=== PATIENT | female | born 1980 | race Caucasian/White ===

== ENCOUNTER 2017-03-07 08:07 | Inpatient (IN) | payer OTHER ==
[~2017-03-07] VITALS: Ht 152.4 cm; Wt 58.9 kg
[~2017-03-07 08:07] MED LIST: PREN1TAB49
[2017-03-07 11:40] VITALS: BP 106/55; RESP 18
[2017-03-07] MEDS ORDERED: HYDROCODONE/APAP (5/325) TAB PO PRN (12:30)
[2017-03-07] MEDS ORDERED: ZOLPIDEM 5 MG TAB PO PRN (12:30)
[2017-03-07] MEDS ORDERED: NACL 0.9% 3 ML SYG IV SCH (12:30)
[2017-03-07] MEDS ORDERED: ACETAMINOPHEN 325 MG TAB PO PRN (12:30)
[2017-03-07] MEDS ORDERED: morphine 2 MG INJ IV PRN (12:30)
[2017-03-07] MEDS ORDERED: ONDANSETRON 4 MG INJ IV PRN (12:30)
[2017-03-07] MEDS ORDERED: DOCUSATE SODIUM 100 MG CAP PO PRN (12:30)
[2017-03-07] MEDS ORDERED: VANCOMYCIN IV PER PHARMACY XX SCH (12:30)
--- NOTE | 2017-03-07 13:15 | HP ---
DATE OF ADMISSION: 03/07/2017 CHIEF COMPLAINT: Nausea and diarrhea as well as fevers. HISTORY OF PRESENT ILLNESS: The patient is a 37-year-old female with no significant medical history . The patient started developing an abscess on her upper back as well as fevers last week. She was given antibiotics with Keflex and Bactrim. The fevers persisted and she went to the ER at [facility]. The patient had I and D several days ago at [facility]. Since then, she has continued to take her antibiotics and started reporting nausea without any vomiting, but did also have diarrhea for 1 day. She also had a T-max of 102.3 and is complaining of a headache. The patient states that she s topped taking her antibiotics last night and since then has been feeling better. Her nausea is now resolved as has her diarrhea. She just feels confused at the time. The patient has no other compla ints. PAST MEDICAL HISTORY: Negative. PAST SURGICAL HISTORY: Tubal ligation. HOME MEDICATIONS: Keflex and Bactrim the past week. ALLERGIES: NO KNOWN DRUG ALLERGIES. FAMILY HISTORY: Noncontributory. SOCIAL HISTORY: Denies any alcohol, tobacco or drugs. REVIEW OF SYSTEMS: A 12-point review of systems negative except that stated in the HPI. PHYSICAL EXAMINATION: VITAL SIGNS: Temperature is 98.9, pulse 97, respirations 18, blood pressure 106/55, saturation 98% on room air. GENERAL: No acute distress. HEENT: Normocephalic, atraumatic. LUNGS: Clear to auscultation. CARDIOVASCULAR: Regular rate and rhythm. ABDOMEN: Nondistended, nontender, soft. EXTREMITIES: No clubbing, cyanosis, or edema. SKIN. Drained abscess is noted on the upper back. LABORATORY DATA: White count is 2.0, hemoglobin is 12.6, platelets are 120. Chemistry: Sodium 133 , 2.4, BUN is 5, creatinine is 0.64. Urine is . UA leukocyte is small, nitrit e is negative, WBC is 6, bacteria is none. DIAGNOSTICS: Chest x-ray shows no evidence of acute cardiopulmonary disease. ASSESSMENT AND PLAN: 1. Sepsis secondary to upper back abscess, now status post I and D several days ago. The patient w as having fevers earlier, but is now afebrile. The patient's white count is within normal limits. We will treat with vancomycin IV for today and monitor her temperature overnight. 2. Nausea with diarrhea, now resolved. It is likely secondary to Bactrim. Will hold her p.o. anti biotics. 3. Hyponatremia. We will monitor. 4. Prophylaxis, ambulation. Dictated By: KATELIN NICOLAS MD BS/NTS Conf#: [id number] DID#: [id number]
[2017-03-07] MEDS ORDERED: VANCOMYCIN 1.25 GM in SOD CHLORIDE 0.9% 250 ML IVPB SCH (14:30)
[2017-03-07 15:29] LABS: CREATININE 0.55 mg/dl (0.44-1.00)
[2017-03-07] MEDS ORDERED: DIPHENHYDRAMINE 50 MG INJ IV ONE (17:30)
[2017-03-07] MEDS ORDERED: CEPH500C PO (19:54)
[2017-03-07] MEDS ORDERED: SULF1TAB31 PO (19:55)
[2017-03-07 20:02] VITALS: BP 99/55; RESP 18
[2017-03-07] MEDS: ACETAMINOPHEN 325 MG TAB PO SCH (21:00)
[2017-03-07] MEDS: DIPHENHYDRAMINE 25 MG CAP PO SCH (21:57)
[2017-03-07] MEDS: VANCOMYCIN 750 MG in SOD CHLORIDE 0.9% 150 ML IVPB SCH (22:58)
[2017-03-08 05:50] LABS: ADD SCAN DIFF NO
[2017-03-08] MEDS: ACETAMINOPHEN 325 MG TAB PO SCH ×3 (05:50→21:48)
[2017-03-08] MEDS: DIPHENHYDRAMINE 25 MG CAP PO SCH ×3 (05:50→21:47)
[2017-03-08 06:06] LABS: ALBUMIN 3.6 g/dl (3.3-4.9); ALBUMIN/GLOBULIN RATIO 1.2; BILIRUBIN,INDIRECT 0.3 mg/dl (0-1.1); BILIRUBIN,TOTAL 0.3 mg/dl (0.2-1.3); CALCIUM 8.6 mg/dl (8.4-10.2); CHOL/HDL RATIO 6.3 RATIO; CREATININE 0.56 mg/dl (0.44-1.00); MAGNESIUM 1.7 mg/dl (1.7-2.5); PHOSPHORUS 4.9 mg/dl (2.5-4.9); POTASSIUM 3.8 mmol/L (3.5-5.1); TOTAL PROTEIN 6.6 g/dl (6.1-8.1)
[2017-03-08 06:16] LABS: T3 UPTAKE 28.4 % (23.5-40.5)
[2017-03-08] MEDS: VANCOMYCIN 750 MG in SOD CHLORIDE 0.9% 150 ML IVPB SCH ×2 (06:47→16:04)
[2017-03-08 07:05] VITALS: BP 90/51; RESP 16
[2017-03-08 07:16] LABS: ABNORMAL IP MESSAGE 1; HEMATOCRIT 34.5 % (37.0-47.0); HEMOGLOBIN 11.2 g/dl (12.0-16.0); MEAN CORPUSCULAR HEMOGLOBIN 27.7 pg (29.0-33.0); MEAN CORPUSCULAR HGB CONC 32.5 g/dl (32.0-37.0); MEAN CORPUSCULAR VOLUME 85.2 fl (82.0-101.0); MEAN PLATELET VOLUME 11.8 fl (7.4-10.4); PLATELET COUNT 118 10^3/UL (140-415); RED BLOOD COUNT 4.05 10^6/ul (4.20-5.40); RED CELL DISTRIBUTION WIDTH 14.3 % (11.5-14.5); WHITE BLOOD COUNT 2.3 10^3/ul (4.8-10.8)
[2017-03-08 11:50] LABS: EOSINOPHILS # 0.3 10^3/ul (0.0-0.5); LYMPHOCYTES # 0.9 10^3/ul (0.8-2.9); MONOCYTE # 0.2 10^3/ul (0.3-0.9); NEUTROPHIL # 0.6 10^3/ul (1.6-7.5)
[2017-03-08 11:51] LABS: PLATELET ESTIMATE PLT APPEAR DECREASED
--- NOTE | 2017-03-08 19:40 | PN ---
Date/Time of Note Date/Time of Note DATE: 03/08/17 TIME: 19:38 Assessment/Plan VTE Prophylaxis VTE Prophylaxis Intervention: ambulation Lines/Catheters IV [facility]ter [facility] (from [facility] Urinary Cath still in place: No Assessment/Plan Chief Complaint/Hosp Course 1. Sepsis secondary to upper back abscess, now status post I and D several days ago -Fevers noted O/N -Monitor today -cont Vanco 2. Nausea with diarrhea, now resolved-likely secondary to Bactrim - Will hold her p.o. antibiotics 3. Hyponatremia-resolved 4. Pancytopenia -monitor -out-pt Hem Prophylaxis- ambulation. Problems: Subjective 24 Hr Interval Summary Neurologic: dizziness Exam/Review of Systems Vital Signs Vitals Vital Signs Date Time Temp Pulse Resp B/P Pulse Ox O2 Delivery O2 Flow Rate FiO2 03/08/17 07:05 98.3 81 16 90/51 98 Intake and Output 03/07/17 03/07/17 03/08/17 15:00 23:00 07:00 Intake Total 712 ml 550 ml Balance 712 ml 550 ml Exam Constitutional: alert, oriented Respiratory: clear to auscultation Cardiovascular: regular rate and rhythm Gastrointestinal: soft, No distended Musculoskeletal: nl extremities to inspection Results Result Diagram: 03/08/17 0516 03/08/17 0516 Results 24 hrs Laboratory Tests Test 03/08/17 05:16 03/08/17 14:29 White Blood Count 2.3 #L Red Blood Count 4.05 L Hemoglobin 11.2 L Hematocrit 34.5 L Mean Corpuscular Volume 85.2 Mean Corpuscular Hemoglobin 27.7 L Mean Corpuscular Hemoglobin Concent 32.5 Red Cell Distribution Width 14.3 Platelet Count 118 L Mean Platelet Volume 11.8 H Neutrophils % 24.0 L Band Neutrophils % 10.0 H Lymphocytes % 38.0 Reactive Lymphocytes % 6.0 Monocytes % 8.0 Eosinophils % 12.0 H Metamyelocytes % 2.0 H Neutrophils # 0.6 L Lymphocytes # 0.9 Monocytes # 0.2 L Eosinophils # 0.3 Metamyelocytes # 0.0 Platelet Estimate PLT APPEAR DECREASED Sodium Level 136 Potassium Level 3.8 Chloride Level 105 Carbon Dioxide Level 27 Anion Gap 8 Blood Urea Nitrogen 6 L Creatinine 0.56 Glucose Level 90 Hemoglobin A1c 5.5 Calcium Level 8.6 Phosphorus Level 4.9 Magnesium Level 1.7 Total Bilirubin 0.3 Direct Bilirubin 0.00 Indirect Bilirubin 0.3 Aspartate Amino Transf (AST/SGOT) 24 Alanine Aminotransferase (ALT/SGPT) 28 Alkaline Phosphatase 46 Total Protein 6.6 Albumin 3.6 Globulin 3.00 Albumin/Globulin Ratio 1.20 Triglycerides Level 174 H Cholesterol Level 114 LDL Cholesterol, Calculated 61 HDL Cholesterol 18 L Cholesterol/HDL Ratio 6.3 Free Thyroxine Index 1.93 Thyroxine (T4) 6.8 Triiodothyronine (T3) Uptake 28.4 Vancomycin Level Trough 8.3 L Medications Medications Current Medications Ondansetron HCl (Zofran Inj) 4 mg Q6H PRN IV NAUSEA AND/OR VOMITING; Start at 12:30 Acetaminophen (Tylenol Tab) 650 mg Q6H PRN PO PAIN LEVEL 1-3 OR FEVER Last administered on 03/07/17 13:15; Admin Dose 650 MG; Start 03/07/17 at 12:30 Acetaminophen/ Hydrocodone Bitart ([place] (5/325)) 1 tab Q6H PRN PO MODERATE PAIN LEVEL 4-6; Start 03/07/17 at 12:30 Morphine Sulfate (morphine) 2 mg Q4H PRN IV SEVERE PAIN LEVEL 7-10; Start 03/07 at 12:30 Docusate Sodium (Colace) 100 mg Q12H PRN PO CONSTIPATION; Start 03/07/17 at 12: 30 Zolpidem Tartrate (Ambien) 5 mg QHS PRN PO SLEEP; Start 03/07/17 at 12:30 Diphenhydramine HCl (Benadryl) 25 mg Q8H PO Last administered on 03/08/17 15: 01; Admin Dose 25 MG; Start 03/07/17 at 22:00 Acetaminophen 650 mg 650 mg Q8H PO Last administered on 03/08/17 15:01; Admin Dose 650 MG; Start 03/07/17 at 22:00 Vancomycin HCl/ Sodium Chloride (Vancocin/NS) 250 ml @ 83.333 mls/ hr Q8H IVPB ; Start 03/08/17 at 23:00 KATELIN NICOLAS Mar 08, 2017 19:40
[2017-03-08 21:05] VITALS: BP 95/53; RESP 20
[2017-03-08] MEDS: VANCOMYCIN 1.25 GM in SOD CHLORIDE 0.9% 250 ML IVPB SCH (22:40)
[2017-03-09 05:10] LABS: ADD SCAN DIFF NO
[2017-03-09 05:25] LABS: ABNORMAL IP MESSAGE 1; HEMATOCRIT 31.6 % (37.0-47.0); HEMOGLOBIN 10.2 g/dl (12.0-16.0); MEAN CORPUSCULAR HEMOGLOBIN 27.9 pg (29.0-33.0); MEAN CORPUSCULAR HGB CONC 32.3 g/dl (32.0-37.0); MEAN CORPUSCULAR VOLUME 86.6 fl (82.0-101.0); MEAN PLATELET VOLUME 11.6 fl (7.4-10.4); PLATELET COUNT 113 10^3/UL (140-415); RED BLOOD COUNT 3.65 10^6/ul (4.20-5.40); RED CELL DISTRIBUTION WIDTH 14.3 % (11.5-14.5); WHITE BLOOD COUNT 2.9 10^3/ul (4.8-10.8)
[2017-03-09] MEDS: DIPHENHYDRAMINE 25 MG CAP PO SCH (05:30)
[2017-03-09] MEDS: ACETAMINOPHEN 325 MG TAB PO SCH (05:31)
[2017-03-09 05:33] LABS: POTASSIUM 3.5 mmol/L (3.5-5.1)
[2017-03-09 05:36] LABS: CALCIUM 8.4 mg/dl (8.4-10.2); CREATININE 0.56 mg/dl (0.44-1.00)
[2017-03-09 05:37] LABS: MAGNESIUM 1.8 mg/dl (1.7-2.5)
[2017-03-09] MEDS: VANCOMYCIN 1.25 GM in SOD CHLORIDE 0.9% 250 ML IVPB SCH (06:30)
[2017-03-09 08:16] VITALS: BP 89/50; RESP 16
[2017-03-09 10:19] VITALS: BP 103/54; PULSE 85
--- NOTE | 2017-03-09 10:25 | PDOCDIS ---
Discharge Instructions CONDITION Patient Condition: Good HOME CARE INSTRUCTIONS: Diet Instructions: Regular ACTIVITY: Activity Restrictions: No Restrictions FOLLOW UP/APPOINTMENTS Appointments F/U WITH YOUR PCP IN 1-2 WEEKS KATELIN NICOLAS Mar 09, 2017 10:25
[2017-03-09] MEDS ORDERED: MECL12.574 PO (11:13)
[2017-03-09 13:36] LABS: EOSINOPHILS # 0.4 10^3/ul (0.0-0.5); LYMPHOCYTES # 1.7 10^3/ul (0.8-2.9); MONOCYTE # 0.2 10^3/ul (0.3-0.9); NEUTROPHIL # 0.5 10^3/ul (1.6-7.5)
--- NOTE | 2017-03-10 03:16 | DS ---
DATE OF ADMISSION: 03/07/2017 DATE OF DISCHARGE: 03/09/2017 DISCHARGE DIAGNOSES: 1. Sepsis secondary to cellulitis from abscess on the back, now resolved. 2. Nausea with diarrhea, resolved. This was likely secondary to Bactrim. 3. Dizziness, likely secondary to antibiotic use, discharged with meclizine. HOSPITAL COURSE: The patient is a 37-year-old female with no significant medical history. The juana ent developed an abscess in her upper back and had an I and D at [facility]. She also was given ant ibiotics with Keflex and Bactrim. She developed nausea and diarrhea several days after her I and D. She stopped her antibiotics and her nausea and vomiting resolved, but she did have fever and she p resented to [facility] and was transferred to [facility], for insurance reasons. The patie nt did have a fever the first night of her hospitalization, but that resolved. She had no leukocyto sis and actually has pancytopenia that is mild. The patient was told to follow up with a hematologi st as an outpatient for workup of the pancytopenia. There is no urgent need for workup at this time , as the pancytopenia is relatively mild. The patient was afebrile the day prior to her discharge a nd on the day of discharge, her other vitals remained stable. She had no acute complaints except fo r some dizziness, and this was felt to be secondary to her antibiotic usage versus benign positional vertigo. Dizziness did begin when she started her p.o. antibiotics. Patient did receive vancomyci n IV during this hospitalization, and she was felt to no longer need any further antibiotics upon di scharge. On day of discharge, the patient's vitals, labs, physical exam were stable. She had no ac viejas complaints, except for the dizziness. Her physical exam was stable. CONDITION ON DISCHARGE: Stable. DISPOSITION: To home. MEDICATIONS: Meclizine 12.5 mg p.o. q.8 hours p.r.n. for dizziness. The patient has stopped taking her home with Keflex and Bactrim. FOLLOWUP: The patient is to follow up with her PCP in 1 to 2 weeks and was told to follow up with a broadcast field supervisor for workup of her pancytopenia. Greater than 30 minutes was spent coordinating discharge of patient. Dictated By: KATELIN NICOLAS MD BS/NTS Conf#: [id number] DID#: [id number] CC: JOSE SABA MD;*End*
== END 2017-03-09 11:32 | disposition home or self-care (01) | DRG 872 ==
LOC: PP2 11:23
PROVIDERS: ADMIT Family Medicine; ATTEND Family Medicine
DX: A41.9 Sepsis, unspecified organism (principal); D61.818 Other pancytopenia; L02.212 Cutaneous abscess of back [any part, except buttock and flank]; E87.1 Hypo-osmolality and hyponatremia; L03.312 Cellulitis of back [any part except buttock and flank]; R42 Dizziness and giddiness
CPT/HCPCS: 80048; 80053; 80061; 80202; 82565; 83036; 83735; 84100; 84436; 84479; 84520; 85025; 87081; J1200; J3370; J7050

== ENCOUNTER 2017-03-17 14:54 | Outpatient (CLI) | payer OTHER ==
[~2017-03-17] VITALS: Ht 142.2 cm; Wt 58.9 kg
[~2017-03-17 14:54] MED LIST changes: +MECL12.574 PO
[2017-03-17 15:03] VITALS: BP 115/58; PULSE 83; RESP 16; Ht 142.2 cm; Wt 58.9 kg
--- NOTE | 2017-03-17 15:20 | PN ---
Date/Time of Note Date/Time of Note DATE: 03/17/17 TIME: 15:16 Outpatient Progress Note Chief Complaint Cellulitis/sebaceous cyst/dizziness HPI Cellulitis/patient has cellulitis on her back, improved, no fever chill, no bleeding or discharge, minimal redness, Sebaceous cyst/patient has sebaceous cyst in the back, patient had IND, patient was started on antibiotic, Dizziness/patient had dizziness off and on, no fever chill, no chest pain, no palpitation, Review of Systems Const: No Fever, no chills, no Wt. loss, no Fatigue, normal appetite, no diaphoresis. Eyes: No pain, no discharge, no redness, no visual change, no foreign body. ENT: No pain, no bleeding, no congestion, no sore throat, no dysphagia, no discharge or rhinitis. Lymph: No adenopathy, no tender nodes, no lymphedema. Resp: No SOB, no cough, no sputum, no wheezing, no chest pain. CV: No chest pain, no palpitaions, no KIM, no PND, no edema. GI: Normal appetite, no pain, no nausea, no vomiting, no diarrhea, no blood, no constipation. : No frequency, no urgency, no dysuria, no hematuria, no flank pain, no discharge, no bleeding. Musc: no back pain, no neck pain, no knee pain, no restricted ROM. Skin: No rash, no skin lesions, patient had minimal cellulitis in the back, and had a sebaceous cyst, no erythema, no laceration, no bruising, no pruritus. Neuro: No DEAN, no dizziness, no syncope, no seizure, no focal-weakness. Endo: No polyuria, no polydypsia, no dry-skin, no temp-intolerance. Psych: No hallucinations, no depression, no anxiety, no suicidal ideation. Ext: No edema, no pain, no ulcer, no weakness. Physical Exam General Appearance: A [37] year-old female] who appears well-developed, well- nourished, in no acute distress. HEENT: Head normocephalic, atraumatic. Pupils equal, round, reactive to light and accommodate. Sclerae are no jaundice. Nasal turbinates pink without erythema or nasal discharge. Mucous membranes pink and moist without lesions. Oropharynx clear without any exudate or discharge. NECK: Supple. Trachea midline, No thyromegaly, No cervical lymphadenopathy, No mass, No carotid bruits, No JVD, Carotid pulses 2+ bilaterally. PULMONARY: Clear to auscultaion bilaterally, No retractions, Chest expansion symmetric bilaterally, no rales, no ronchi, no dulness on percussion. CARDIAC: Normal SI and S2, Regular rate and rythm, no murmur, gallop, or rub. GASTROINTESTINAL: Abdomen is soft, non-tender, Non Rigid, No distention, Positive bowel sounds x4 quadrants, Liver normal. SKIN: Warm, dry, no rash, no bruise, no echmosis. Cellulitis improving, minimal redness, no drainage, patient also has sebaceous cyst, minimal size, EXTREMITIES: Bilateral lower extremities normal, no edema, no phlabitus, pulse palpable, no contracture. MUSCULOSKELETAL: Spine Normal, Non-tender, Normal range of motion, No swelling, no deformity, no clubbing, or cyanosis, the patient has no edema to bilateral lower extremities, dorsalis pedis pulses palpable bilaterally. NEUROLOGIC: The patient is awake, alert, oriented, responding to yes/no questions appropriately, moving all extremities, cranial nerve intact, normal strenght, normal power, normal coordination, normal gait. Allergies Coded Allergies: No Known Drug Allergy (Verified Allergy, Unknown, 11/19/15) No Known Allergy (Verified , 12/26/09) PMH No smoking or drinking, Incision and drainage of the cyst, Social Hx No smoking or drinking, Family Hx Noncontributory Assessment/Plan Impression Cellulitis/sebaceous cyst/dizziness Plan Patient has small sebaceous cyst, she had incision and drainage, patient doing better, no fever chill, Patient education done, Patient encouraged to follow with the primary care physician, Patient has Antivert for dizziness, will monitor closely, Medications Home Meds Active Scripts Meclizine Hcl* (Antivert*) 12.5 Mg Tab, 12.5 MG PO Q8H Y for DIZZINESS, #30 TAB Prov:KATELIN NICOLAS 03/09/17 Reported Medications Vits W-Ca,Fe,Fa(<1MG) () 1 Tab Tablet, 1 DAILY 06/05/11 LISSETH MANUEL MD March 17, 2017 15:20
== END 2017-03-17 17:00 | disposition home or self-care (01) ==
LOC: DCC 14:54
PROVIDERS: ATTEND Internal Medicine
DX: L03.319 Cellulitis of trunk, unspecified (principal); L72.3 Sebaceous cyst; R42 Dizziness and giddiness

== ENCOUNTER 2017-03-26 10:59 | Outpatient (CLI) | payer OTHER ==
[~2017-03-26] VITALS: Ht 142.2 cm; Wt 58.2 kg
[2017-03-26 11:16] VITALS: BP 125/58; PULSE 89; RESP 16; Ht 142.2 cm; Wt 58.2 kg
--- NOTE | 2017-03-26 11:36 | PN ---
Date/Time of Note Date/Time of Note DATE: 03/26/17 TIME: 11:33 Outpatient Progress Note Chief Complaint Dizziness/cellulitis/cyst HPI Dizziness/patient has minimal dizziness, patient has not taken medication, no headache or ear pain, no sore throat, no chest pain or palpitation, Cellulitis patient had cellulitis in the back, patient finished antibiotic, no more cellulitis, Cyst patient has sebaceous cyst in the back, size reduced, no bleeding or discharge, Review of Systems Const: No Fever, no chills, no Wt. loss, no Fatigue, normal appetite, no diaphoresis. Eyes: No pain, no discharge, no redness, no visual change, no foreign body. ENT: No pain, no bleeding, no congestion, no sore throat, no dysphagia, no discharge or rhinitis. Lymph: No adenopathy, no tender nodes, no lymphedema. Resp: No SOB, no cough, no sputum, no wheezing, no chest pain. CV: No chest pain, no palpitaions, no KIM, no PND, no edema. GI: Normal appetite, no pain, no nausea, no vomiting, no diarrhea, no blood, no constipation. : No frequency, no urgency, no dysuria, no hematuria, no flank pain, no discharge, no bleeding. Musc: no back pain, no neck pain, no knee pain, no restricted ROM. Skin: No rash, no skin lesions, no erythema, no laceration, no bruising, no pruritus. Neuro: No DEAN, no dizziness, no syncope, no seizure, no focal-weakness. Endo: No polyuria, no polydypsia, no dry-skin, no temp-intolerance. Psych: No hallucinations, no depression, no anxiety, no suicidal ideation. Ext: No edema, no pain, no ulcer, no weakness. Physical Exam Vital Signs Date Time Temp Pulse Resp B/P Pulse Ox O2 Delivery O2 Flow Rate FiO2 03/26/17 11:16 98.2 89 16 125/58 98 Room Air General Appearance: A 37 year-old [female] who appears well-developed, well- nourished, in no acute distress. HEENT: Head normocephalic, atraumatic. Pupils equal, round, reactive to light and accommodate. Sclerae are no jaundice. Nasal turbinates pink without erythema or nasal discharge. Mucous membranes pink and moist without lesions. Oropharynx clear without any exudate or discharge. NECK: Supple. Trachea midline, No thyromegaly, No cervical lymphadenopathy, No mass, No carotid bruits, No JVD, Carotid pulses 2+ bilaterally. PULMONARY: Clear to auscultaion bilaterally, No retractions, Chest expansion symmetric bilaterally, no rales, no ronchi, no dulness on percussion. CARDIAC: Normal SI and S2, Regular rate and rythm, no murmur, gallop, or rub. GASTROINTESTINAL: Abdomen is soft, non-tender, Non Rigid, No distention, Positive bowel sounds x4 quadrants, Liver normal. SKIN: Warm, dry, no rash, no bruise, no echmosis. No cellulitis, no bleeding or discharge, wound healed, patient has a small sebaceous cyst in the back, EXTREMITIES: Bilateral lower extremities normal, no edema, no phlabitus, pulse palpable, no contracture. MUSCULOSKELETAL: Spine Normal, Non-tender, Normal range of motion, No swelling, no deformity, no clubbing, or cyanosis, the patient has no edema to bilateral lower extremities, dorsalis pedis pulses palpable bilaterally. NEUROLOGIC: The patient is awake, alert, oriented, responding to yes/no questions appropriately, moving all extremities, cranial nerve intact, normal strenght, normal power, normal coordination, normal gait. Allergies Coded Allergies: No Known Drug Allergy (Verified Allergy, Unknown, 11/19/15) No Known Allergy (Verified , 12/26/09) PMH No change Social Hx No change Assessment/Plan Impression Dizziness resolving Cellulitis improved Sebaceous cyst Plan Patient education done, patient advised to go and refill Antivert, and take it, Patient is a sebaceous cyst no inflammation, cellulitis heel, wound clean, Patient to follow with the primary care physician, Medications Home Meds Active Scripts Meclizine Hcl* (Antivert*) 12.5 Mg Tab, 12.5 MG PO Q8H Y for DIZZINESS, #30 TAB Prov:KATELIN NICOLAS 03/09/17 Reported Medications Vits W-Ca,Fe,Fa(<1MG) () 1 Tab Tablet, 1 DAILY 06/05/11 LISSETH MANUEL MD March 26, 2017 11:36
== END 2017-03-26 16:40 | disposition home or self-care (01) ==
LOC: DCC 10:59
PROVIDERS: ATTEND Internal Medicine
DX: R42 Dizziness and giddiness (principal); L03.312 Cellulitis of back [any part except buttock and flank]; L72.3 Sebaceous cyst

== ENCOUNTER 2017-06-08 11:18 | Day surgery (SDC) | payer OTHER ==
[~2017-06-08] VITALS: Ht 152.4 cm; Wt 58.2 kg
[2017-06-08] VITALS (12 sets, daily range): BP systolic 84–114; BP diastolic 44–60; PULSE 70–76; RESP 15–20; Ht 152.4 cm; Wt 58.2 kg
[~2017-06-08 11:18] MED LIST changes: +CEFAZOLIN 2 GM/50 ML (PMX) 50 ML IVPB SCH; +DIPHENHYDRAMINE 50 MG INJ IV PRN; +FENTAnyl 50 MCG/ML VIAL IV PRN; +HYDROmorphONE (0.2 MG/ML) 10ML SYG IV PRN; +MEPERIDINE 25 MG INJ IV PRN; +ONDANSETRON 4 MG INJ IV PRN; +OXYCODONE/ACETAMINOPHEN (5/325) TAB PO PRN; +PROCHLORPERAZINE 10 MG INJ IV PRN; +SOD CHLORIDE 0.9% 1,000 ML IV SCH
[2017-06-08 12:24] LABS: BASOPHILS % 0.3 % (0.0-2.0); EOSINOPHILS # 0.2 10^3/ul (0.0-0.5); EOSINOPHILS % 5.8 % (0.0-7.0); HEMATOCRIT 36.6 % (37.0-47.0); HEMOGLOBIN 11.6 g/dl (12.0-16.0); LYMPHOCYTES # 1.6 10^3/ul (0.8-2.9); LYMPHOCYTES % 44.2 % (15.0-51.0); MEAN CORPUSCULAR HEMOGLOBIN 26.4 pg (29.0-33.0); MEAN CORPUSCULAR HGB CONC 31.7 g/dl (32.0-37.0); MEAN CORPUSCULAR VOLUME 83.4 fl (82.0-101.0); MEAN PLATELET VOLUME 11.4 fl (7.4-10.4); MONOCYTE # 0.3 10^3/ul (0.3-0.9); MONOCYTES % 8.6 % (0.0-11.0); NEUTROPHIL # 1.5 10^3/ul (1.6-7.5); NEUTROPHILS % 40.8 % (39.0-77.0); PLATELET COUNT 182 10^3/UL (140-415); RED BLOOD COUNT 4.39 10^6/ul (4.20-5.40); RED CELL DISTRIBUTION WIDTH 14.1 % (11.5-14.5)
[2017-06-08 12:35] LABS: ALBUMIN 4.9 g/dl (3.3-4.9); ALBUMIN/GLOBULIN RATIO 1.44; BILIRUBIN,INDIRECT 1.2 mg/dl (0-1.1); BILIRUBIN,TOTAL 1.2 mg/dl (0.2-1.3); TOTAL PROTEIN 8.3 g/dl (6.1-8.1)
[2017-06-08 12:37] LABS: INR 0.95; PROTIME 12.7 Sec (12.2-14.2)
[2017-06-08 12:38] LABS: CREATININE 0.59 mg/dl (0.44-1.00)
[2017-06-08 12:39] LABS: CALCIUM 9.6 mg/dl (8.4-10.2)
[2017-06-08 12:44] LABS: WHITE BLOOD COUNT 3.6 10^3/ul (4.8-10.8)
[2017-06-08] MEDS ORDERED: LIDOCAINE 2% (SDV) 5 ML INJ ONE (12:51)
[2017-06-08] MEDS ORDERED: PROPOFOL 20 ML ONE (12:51)
[2017-06-08] MEDS ORDERED: FENTAnyl 50 MCG/ML VIAL ONE (12:52)
[2017-06-08] MEDS ORDERED: MIDAZOLAM 1 MG/ML 2 ML INJ ONE (12:52)
[2017-06-08] MEDS ORDERED: BUPIVACAINE 0.25%/EPI (SDV) 30 ML INJ ONE (13:34)
[2017-06-08] MEDS ORDERED: LIDOCAINE 1% (MPF) 30 ML INJ ONE (13:47)
[2017-06-08] MEDS ORDERED: CEFAZOLIN 1 GM INJ ONE (13:54)
[2017-06-08] MEDS ORDERED: ONDANSETRON 4 MG INJ ONE (13:56)
[2017-06-08] MEDS ORDERED: METOCLOPRAMIDE 10 MG INJ ONE (13:56)
[2017-06-08] MEDS ORDERED: BUPIVACAINE 0.25%/EPI (SDV) 30 ML INJ INJ ONE (14:00)
[2017-06-08] MEDS ORDERED: LIDOCAINE 1% (MPF) 30 ML INJ INJ ONE (14:00)
[2017-06-08] MEDS ORDERED: EPHEDrine SULFATE 50 MG/5 ML SYG ONE (14:11)
[2017-06-08] MEDS ORDERED: KETOROLAC 30 MG INJ ONE (14:17)
[2017-06-08] MEDS ORDERED: BACITRACIN/POLYMYXIN 0.9 GM OINT TOP ONE (14:20)
[2017-06-08] MEDS ORDERED: BACITRACIN/POLYMYXIN 28.35 GM OINT TOP ONE (14:23)
[2017-06-08] MEDS ORDERED: ONDANSETRON 4 MG INJ IV PRN (14:30)
[2017-06-08] MEDS ORDERED: IBUPROFEN 600 MG TAB PO PRN (14:30)
[2017-06-08] MEDS ORDERED: KETOROLAC 30 MG INJ IV PRN (14:30)
--- NOTE | 2017-06-08 14:34 | OPR ---
Date/Time of Note Date/Time of Note DATE: 06/08/17 TIME: 14:29 Operative Report Procedure Date: Jun 08, 2017 Preoperative Diagnosis Soft tissue mass of upper back Postoperative Diagnosis Soft tissue mass of upper back Operation Performed Excision soft tissue mass of upper back 2 cm Surgeon: RONNY FRANCO MD Anesthesia: MAC Anesthesiologist: MARSHA BARNES MD Estimated Blood Loss: minimal Specimens Soft tissue mass of upper back Complications: None Pt Condition Post Procedure: stable Disposition: PACU Indications Patient is a 37-year-old female who presented to the office complaining of a soft tissue mass of the upper back. This was most consistent with a sebaceous cyst. The patient had sustained a prior infection requiring incision and drainage. She complained of pain. Elective excision was recommended for symptom relief, definitive pathological diagnosis, and prevention of recurrent infection. All risks and benefits of the procedure including, but not limited to: Wound infection, excessive bleeding, postoperative seroma/hematoma formation, mass recurrence, etc. were all explained to the patient in full detail. She fully understood and wished to proceed with the procedure. Informed consent was obtained. Operative\Procedure Findings Consistent with sebaceous cyst Procedure Description The patient was brought to the operating room and placed on the operating table in the right lateral decubitus position with the left side up. The mass had been preoperatively marked and confirmed with the patient in the holding area. After achieving adequate sedation the patient's back was prepped and draped in standard surgical fashion. After performance of the surgical timeout 1% lidocaine local anesthesia was injected in a radial fashion around the area of the mass creating a field block. An elliptical incision was then made using a 15 blade scalpel through the skin encompassing the opening sinus tract of the mass. Incision was taken down through the skin and dermis into the subcutaneous tissues using Bovie electrocautery. The mass was transected at its base in the subcutaneous tissues and passed off the field as specimen. Local advancement flaps were then raised in order to bring the wound together without tension. Hemostasis was inspected for and noted to be total. The wound cavity was irrigated with warm saline and the irrigant returned clear. The wound was then closed in layers using interrupted 3-0 Vicryl sutures for the dermal layer. The skin was reapproximated using interrupted 3-0 nylon sutures. 0.25% Marcaine with epinephrine was then injected around the incision. Incision was cleaned and bacitracin ointment was applied as well as a sterile dressing. The patient was then transferred to the recovery room in stable condition. All counts were correct at the end of the case 2. RONNY FRANCO MD Jun 08, 2017 14:34
== END 2017-06-08 15:55 | disposition home or self-care (01) ==
LOC: SDS 11:18
PROVIDERS: ATTEND Surgery
DX: R22.2 Localized swelling, mass and lump, trunk (principal); L72.0 Epidermal cyst
CPT/HCPCS: 11402; 12031; 80053; 84703; 85025; 85610; 85730; 88307; J0690; J1885; J2250; J2405; J2765; J3010; Z7512; Z7610